=== PATIENT | male | born 1940 | race Caucasian/White ===

== ENCOUNTER 2022-07-19 22:56 | Emergency (ER) | payer OTHER, SELFPAY ==
[2022-07-19 22:58] VITALS: BP 139/77; PULSE 85; RESP 16; TEMP 36.1; O2SAT 99
--- NOTE | 2022-07-19 23:16 | ED.GENADULT ---
HPI - General Adult General Chief complaint: Urogenital-Male Stated complaint: abd pain Time Seen by Provider: 07/19/22 22:59 History of Present Illness HPI narrative: 82-year-old male presenting the emergency department for evaluation of issues with urinary retention. Patient states for the last 2 days he has had issues with increased urinary frequency and decreased ability to completely empty his bladder. Patient states he does have a history of enlarged prostate and does have follow-up with urology. Patient states he does have follow-up with urology scheduled for tomorrow. Related Data Allergies Allergy/AdvReac Type Severity Reaction Status Date / Time No Known Allergies Allergy Verified 07/20/22 01:14 Review of Systems Review of Systems: CONSTITUTIONAL: Denies fever, chills, or sweats. EYES: Denies visual changes, redness, or discharge. ENT: Denies rhinorrhea, congestion, sore throat, or otalgia. CARDIOVASCULAR: Denies chest pain, palpitations, or edema. RESPIRATORY: Denies cough or dyspnea. GASTROINTESTINAL: Suprapubic abdominal distention GENITOURINARY: Urinary retention SKIN: Denies rash or itching. MUSCULOSKELETAL: Denies back pain, joint pain, or myalgia. NEUROLOGIC: Denies headache, numbness, or weakness. [facility] Family History Family History (Updated 05/20/16 @ 23:21 by DOCTOR UNKNOWN) Mother Family history of lung cancer Family history of heart disease in male family member before age 55 Patient's mother is Father Acute myocardial infarction Family history of malignant neoplasm Patient's father is Sibling Patient's brother is in good health Social History Social History Smoking status: Light tobacco smoker Second hand tobacco smoke exposure: Yes Alcohol intake: never Exam Narrative: APPEARANCE: Well appearing, no pain, no distress, well-nourished. HEAD: normocephalic, atraumatic. EYES: PERRLA/EOMI, conjunctivae clear. NOSE: Normal no drainage THROAT: Pharynx clear, no exudate. NECK: Supple. No adenopathy, no masses. RESPIRATORY: Airway patent, respirations nonlabored. Clear to auscultation bilaterally, no rales, rhonchi, wheezing. CARDIOVASCULAR: Regular rate and rhythm without murmurs rubs or gallops. ABDOMINAL: Distended suprapubic, mild tenderness to palpation. Bladder scan showed greater than 300 mL of retained urine MUSCULOSKELETAL: Moves all extremities. Strength/ROM intact, No edema, No calf tenderness. NEURO: Alert. Cranial nerves II through XII intact. Grossly intact SKIN: Warm, dry. Normal Color Course Course Emergency Course: Patient had greater than 300 mL of retained urine on bladder scan. Patient states he is unable to void. Mcdowell catheter was placed. Patient had approximately 1500 mL of retained urine. Patient felt significantly improved after placement of the Mcdowell catheter. UA showed no evidence of urinary tract infection. On examination patient's abdomen was soft and nontender. Patient was started on Flomax. Patient does have follow-up with urology later today. Patient was discharged with the Mcdowell catheter in place. Vital Signs Vital signs: Vital Signs Temperature 97.0 F L 07/19/22 22:58 Pulse Rate 85 07/19/22 22:58 Respiratory Rate 16 07/19/22 22:58 Blood Pressure 139/77 07/19/22 22:58 Pulse Oximetry 99 07/19/22 22:58 Oxygen Delivery Room Air 07/19/22 22:58 Temperature 97.0 F L 07/19/22 22:58 Pulse Rate 71 07/19/22 23:28 Respiratory Rate 20 07/19/22 23:28 Blood Pressure 132/61 07/19/22 23:28 Pulse Oximetry 97 07/19/22 23:28 Oxygen Delivery Room Air 07/19/22 22:58 Medical Decision Making Vital Signs Vital Signs: Vital Signs Temperature 97.0 F L 07/19/22 22:58 Pulse Rate 85 07/19/22 22:58 Respiratory Rate 16 07/19/22 22:58 Blood Pressure 139/77 07/19/22 22:58 Pulse Oximetry 99 07/19/22 22:58 Oxygen Delivery Room Air 07/19/22 22:58 Temperature 97.0 F L
[2022-07-19 23:28] VITALS: BP 132/61; PULSE 71; RESP 20; O2SAT 97
[2022-07-20 00:38] LABS: Appearance Urine Clear (Clear); Bilirubin Urine Negative (Negative); Blood Urine Trace-lysed (Negative); Color Urine Yellow (Yellow); Glucose Urine UA Negative (Negative); Ketones Urine Negative (Negative); Leukocyte Esterase Ur Negative LEU/UL (Negative); Nitrate Urine Negative (Negative); Protein Urine Trace mg/dL (Negative); Urobilinogen Urine 0.2 mg/dL (<2.0)
[2022-07-20 00:44] LABS: Mucus Urine Rare /lpf; WBC Urine 0-3 /hpf
[2022-07-20 00:46] LABS: Add Urine Microscopic? YES
[2022-07-20] MEDS: TAMSULOSIN HCL 0.4 MG CAPSULE PO (01:15)
== END 2022-07-20 01:25 | disposition home or self-care (01) ==
PROVIDERS: Emergency Provider Emergency Medicine; PCP Internal Medicine
DX: N40.1 Benign prostatic hyperplasia with lower urinary tract symptoms (principal); R33.8 Other retention of urine; F17.200 Nicotine dependence, unspecified, uncomplicated
CPT/HCPCS: 51702; 81001; 99283; A9270